=== PATIENT | female | born 1990 | race Caucasian/White ===

== ENCOUNTER 2017-12-05 06:46 | Inpatient (IN) | payer OTHER ==
[2017-12-05 08:00] LABS: ABS Basophils 0 10^3/ul (0-0.2); ABS Eosinophils 0.1 10^3/ul (0-0.6); ABS Lymphocytes 2.7 10^3/ul (1.0-4.8); ABS Monocytes 0.6 10^3/ul (0-0.8); ABS Neutrophils 7.9 10^3/ul (1.5-7.7); ABS Nucleated RBC 0 10^3/ul; Eosinophil % 0.5 % (0-6); Hematocrit 39 % (35-47); Hemoglobin 13.4 g/dl (12.0-16.0); Lymphocyte % 24.2 % (25-47); Mean Corpuscular HGB Conc 35 g/dl (31-36); Mean Corpuscular Hemoglobin 30 pg (27-31); Mean Corpuscular Volume 86 fL (80-97); Mean Platelet Volume 9.8 um3 (7.4-10.4); Nucleated Red Blood Cells % 0; Platelet Count 213 10^3/ul (150-450); Red Blood Count 4.52 10^6/ul (4.00-5.40); Red Cell Distribution Width 13 % (10.5-15); White Blood Count 11.3 10^3/ul (3.5-10.8)
[2017-12-05] MEDS ORDERED: Penicillin G Potassium IV* 5,000,000 UNITS in NS 0.9% 100 ML* 100 ML IVPB ONE (08:00)
[2017-12-05] MEDS ORDERED: OBEPIDURAL* 250 ML EPIDURAL ONE (09:06)
[2017-12-05] MEDS ORDERED: Phenylephrine IV* 40 MCG/ML 10 ML SYRINGE IV PUSH PRN (09:39)
[2017-12-05] MEDS ORDERED: Sodium Citrate/Citric Acid* 15 ML UDC PO PRN (09:39)
[2017-12-05] MEDS ORDERED: Famotidine TAB* 20 MG PO PRN (09:39)
--- NOTE | 2017-12-05 09:46 | HP ---
General Information - General Information Maternal Age: 27 Grav: 2 Para: 1 SAB: 0 IEA: 0 Estimated Due Date: 01/06/18 Determined By: LMP Maternal Blood Type and Rh: O Positive - Results this Serology/RPR Result: Non-Reactive Rubella Result: Immune HBsAg Result: Negative HIV Result: Negative Past Medical History Delivery History: Hx Uncomplicated Vaginal Delivery Pertinent Past Medical History: See Records - asthma- childhood, depression/ anxiety, HSV- cold sores Pertinent Past Surgical History: None Pertinent Family History: Non-Contributory - Antepartal Records Antepartal Records: Reviewed, Uncomplicated Review of Systems Constitutional: Uncomfortable CV Complaint: No Respiratory: Shortness of Breath: No Gastrointestinal: No Nausea/Vomiting, Normal Bowel Movement Genitourinary: Leaking Fluid, No Dysuria, No Bleeding Musculoskeletal: No Epigastric Pain, Contractions Neurological: No Headache, No Visual Changes Movement: Normal Exam Allergies/Adverse Reactions: Allergies latex Allergy (Verified 12/05/17 07:49) Unknown Reaction Details T-98.1, P-67, R-16, BP-122/64 Lab Values - Entire Visit: Laboratory Tests 12/05/17 12/05/17 12/05/17 07:11 07:42 07:42 WBC 11.3 H RBC 4.52 Hgb 13.4 Hct 39 MCV 86 MCH 30 MCHC 35 RDW 13 Plt Count 213 MPV 9.8 Neut % (Auto) 70.1 Lymph % (Auto) 24.2 L Edmunds % (Auto) 4.9 Eos % (Auto) 0.5 Baso % (Auto) 0.3 Absolute Neuts (auto) 7.9 H Absolute Lymphs (auto) 2.7 Absolute Monos (auto) 0.6 Absolute Eos (auto) 0.1 Absolute Basos (auto) 0 Absolute Nucleated RBC 0 Nucleated RBC % 0 Vag Amniotic Fld Detect Positive Blood Type O Positive Antibody Screen Negative - Measurements Height: 5 ft 7 in Weight: 70.307 kg Weight in lbs: 155.465473 Body Mass Index (BMI): 24.3 Pre- Weight: 125 g Weight Gained This : 154.724 lbs and 0.007 ozs - Exam Breast: Breast Exam Deferred CVA: No CVA Tenderness Extremities: No Edema Heart: Normal Rhythm/Heart Sounds HEENT: No Significant Findings Lungs: Clear Bilaterally Rectal: Rectal Exam Deferred Reflexes: DTR 2+ Thyroid: No Thyromegaly - Abdominal Exam Abdomen Exam: Non-Tender, Fundal Height Consistent with Dates - Ultrasound/Biophysical Profile Ultrasound Status: Not Done Targeted Exam Findings See L&D Outpatient Visit Provider Note for Findings: N/A Estimated Weight: 5.5# Cervical Exam: 4cm Effacement: 80% Station: 0 Presenting Part: Vertex Membrane Status: SROM Amniotic Fluid Evaluation: Gross Rupture, Positive ROM Plus EFM Findings - External Monitor Findings Baseline Heart Rate: 150 External Monitor Findings: Accelerations Present, No Pattern of Variable or Late Decelerations, Variability Moderate, Baseline Stable Contractions: Regular, Moderate, 45-90 Seconds Contraction Frequency: 2-4 Assessment/Plan - Assessment 27 year old at 35 3/7 weeks gestation with +SROM in active labor. No evidence of acidemia. - Obstetrical Risk Factors Obstetrical Risk Factors: GBS Unknown, - Plan Plan: Admit - Anticipate Vaginal Delivery Plan Comment: Pt requested and received epidural for pain relief. - Date/Time of Admission Date of Admission: 12/05/17 Time of Admission: 08:03
[2017-12-05] MEDS ORDERED: OBEPIDURAL* 250 ML EPIDURAL SCH (10:00)
[2017-12-05] MEDS ORDERED: Oxytocin in LR* 20 UNITS/1,000 ML BAG IVPB ONE (11:08)
[2017-12-05] MEDS ORDERED: Glycerin ADULT SUPP PR PRN (11:43)
[2017-12-05] MEDS ORDERED: Acetaminophen TAB* 325 MG PO PRN (11:43)
[2017-12-05] MEDS ORDERED: Dibucaine 1% 28.35 GM TUBE PR PRN (11:43)
[2017-12-05] MEDS ORDERED: Witch Hazel PAD* JAR TOPICAL PRN (11:43)
[2017-12-05] MEDS ORDERED: Oxytocin in LR* 20 UNITS/1,000 ML BAG IVPB SCH (12:00)
[2017-12-05] MEDS ORDERED: Ampicillin IV* 2 GM in NS 0.9% 100 ML* 100 ML IVPB SCH (12:30)
[2017-12-05] MEDS ORDERED: Penicillin G Potassium IV* 2,500,000 UNITS in NS 0.9% 100 ML* 100 ML IVPB SCH (12:30)
[2017-12-05] MEDS: Docusate CAP* 100 MG PO SCH (14:53)
--- NOTE | 2017-12-05 15:29 | PROCNOTE ---
[facility] OB: Delivery Note - Delivery A Date of : 12/05/17 Time of : 11:21 [place] Sex: Male Weight at : 2.81 kg Score 1 Minute: 9 Score 5 Minutes: 9 Gestational Age in Weeks and Days at Delivery: 35 Weeks and 3 Days Delivery Method: Spontaneous Vaginal Labor: Spontaneous Did Patient attempt ?: N/A, No Previous Amniotic Fluid: Clear Estimated Blood Loss: 200 Anesthesia/Analgesia: CEI for Labor Delivered By: Karyn Emmanuel Nursery Level of Nursery: Regular/Bedside - Perineum Perineal Injury: None/Intact Perineal Repair: None - Events Delivery Events of Note: Pitocin Only After Delivery, Partial Course of Antibiotics - Risk for Falls Other Risk for Falls: none - Additional Delivery Notes Additional Delivery Notes: Pt admitted at 0800 with SROM of clear fluid at 35 3/7 weeks gestation. At time of admission, pt was 4cm dilation, so steroids not considered. Prophylactic antibiotics initiated on admission, as GBS status unknown. Pt soon progressed into active labor, and requested and received an epidural which provided good pain relief. Pt's labor continued to progress. When she reported pressure exam found her at full dilation, +2 station. Design Chief in house, NICU nurse in room for delivery. Pt pushed effectively. 's head delivered in OA, restituting to TANNER with compound hand. Shoulders delivered easily with gentle traction, and infant placed on maternal abdomen. Thick cord was clamped after pulsation ceased, at approx 4 minutes of life, and cut by 's father. Placenta delivered spontaneously, [place] side with trailing membranes. IV Pitocin initiated. Fundas firm with minimal bleeding. Perineum intact. was vigorous, skin to skin with mother.
[2017-12-05] MEDS: Ibuprofen TAB* 600 MG PO PRN (17:54)
--- NOTE | 2017-12-05 19:28 | PTEDU ---
Patient Name: MARY ANN MCKENZIE MARY ANN MCKENZIE selected video: BBOB: Nurturing Your Gorgeous &Growing Baby by to view on 12/05/2017 at 7:27:27 PM from [id number]
[2017-12-06] MEDS: Ibuprofen TAB* 600 MG PO PRN ×4 (00:13→22:07)
[2017-12-06] MEDS: Docusate CAP* 100 MG PO SCH ×4 (02:20→22:08)
[2017-12-06 06:29] LABS: ABS Basophils 0 10^3/ul (0-0.2); ABS Eosinophils 0.1 10^3/ul (0-0.6); ABS Lymphocytes 2.8 10^3/ul (1.0-4.8); ABS Monocytes 0.7 10^3/ul (0-0.8); ABS Neutrophils 9.3 10^3/ul (1.5-7.7); ABS Nucleated RBC 0 10^3/ul; Eosinophil % 1.1 % (0-6); Hematocrit 35 % (35-47); Lymphocyte % 21.5 % (25-47); Mean Corpuscular HGB Conc 35 g/dl (31-36); Mean Corpuscular Hemoglobin 30 pg (27-31); Mean Corpuscular Volume 86 fL (80-97); Mean Platelet Volume 9.3 um3 (7.4-10.4); Nucleated Red Blood Cells % 0; Platelet Count 180 10^3/ul (150-450); Red Blood Count 4.05 10^6/ul (4.00-5.40); Red Cell Distribution Width 14 % (10.5-15)
[2017-12-06] MEDS ORDERED: Ferrous Gluconate TAB* 324 MG TAB PO SCH (09:00)
[2017-12-07] MEDS: Ibuprofen TAB* 600 MG PO PRN ×2 (03:53→12:41)
[2017-12-07 08:44] VITALS: BP 116/73
[2017-12-07] MEDS: Docusate CAP* 100 MG PO SCH (12:49)
== END 2017-12-07 12:57 | disposition home or self-care (01) | DRG 775 ==
LOC: MCHOBOUT 06:46 → MCHOB 08:03
PROVIDERS: ADMIT Midwife; ATTEND Midwife
PROC: 10E0XZZ Delivery of Products of Conception, External Approach (ICD-10-PCS; principal; 2017-12-05)
DX: O42.013 Preterm premature rupture of membranes, onset of labor within 24 hours of rupture, third trimester (principal); O99.344 Other mental disorders complicating childbirth; F41.9 Anxiety disorder, unspecified; F32.9 Major depressive disorder, single episode, unspecified; Z3A.35 35 weeks gestation of pregnancy; Z37.0 Single live birth
CPT/HCPCS: 36415; 84112; 85025; 86850; 86900; 86901; A9270-GY; J0290; J2540